=== PATIENT | female | born 1995 | race Caucasian/White ===

== ENCOUNTER → 2020-08-03 | Outpatient (CLI) | payer OTHER ==
[~2020-08-03] MED LIST: CIPRO500 MG PO; COLACE 100MG C100 MG PO; FLAGYL500 MG PO; IBUPROFEN600 MG PO; K-DUR TAB 20 M20 MEQ PO; LEVOFLOXACIN500 MG PO; LODINE CAP 300300 MG PO; METRONIDAZOLE250 MG PO; MILK OF MA400 MG/5 M PO; NORCO 5-325 TA1 EACH PO; PRILOSEC OTC20 MG PO; ZANTAC150 MG PO; ZOFRAN4 MG PO
== END ==
LOC: EXRD 08:28
DX: R10.11 Right upper quadrant pain (principal)
CPT/HCPCS: 76705

== ENCOUNTER → 2021-10-17 | Outpatient (CLI) | payer OTHER | LOC: HEART 5 14:33 | DX: R94.31 Abnormal electrocardiogram [ECG] [EKG] (principal); R42 Dizziness and giddiness | CPT/HCPCS: 93306 ==